=== PATIENT | female | born 1995 | race Caucasian/White ===

== ENCOUNTER 2020-11-26 01:08 | Emergency (ER) | payer OTHER ==
[~2020-11-26] VITALS: Ht 165.1 cm; Wt 50.0 kg
[2020-11-26 01:18] VITALS: BP 125/79; TEMP 98.2
[2020-11-26 02:25] LABS: COLLECTION METHOD CLEAN CATCH
[2020-11-26 02:27] LABS: BASO % 0.6 % (0.0-2.0); EOS # 0.2 (0.0-0.7); EOS % 2.2 % (0-4.0); GRAN # 3.1 (1.4-6.5); GRAN % 45.6 % (42.2-75.2); HEMATOCRIT 41.5 % (37.0-47.0); HEMOGLOBIN 13.5 g/dl (12.5-16.0); LYMPH # 2.9 (1.2-3.4); LYMPH % 43.8 % (20.0-51.0); MEAN CELL VOLUME 91 fl (80.0-100.0); MEAN CORPUSCULAR HEMOGLOBIN 30 pg (27.0-31.0); MEAN CORPUSCULAR HGB CONC 33 g/dl (33.0-37.0); MEAN PLATELET VOLUME 10.2 fl (7.4-10.4); MONO # 0.5 (0.1-0.6); MONO % 7.7 % (1.7-9.3); PLATELET COUNT 240 K/mm3 (130-400); RED BLOOD COUNT 4.56 M/mm3 (4.10-5.30); REDCELL DISTRIBUTION WIDTH-CV 12.4 % (11.5-14.5)
[2020-11-26 02:30] LABS: PH 6 (5-8); SQUAMOUS EPITHELIAL 0-2 /hpf; URINE APPEARANCE Clear; URINE BACTERIA None Seen /hpf; URINE BILIRUBIN Negative (NEGATIVE); URINE BLOOD 1+ (NEGATIVE); URINE COLOR Yellow; URINE GLUCOSE Negative (NEGATIVE); URINE KETONE Negative (NEGATIVE); URINE LEUKOCYTE ESTERASE Negative (NEGATIVE); URINE NITRATE Negative (NEGATIVE); URINE PROTEIN(semi-quant) Negative (NEGATIVE); URINE RBC 0-2 /hpf
[2020-11-26 02:37] LABS: ALBUMIN 4.5 gm/dL (3.5-5.0); BILIRUBIN,TOTAL 0.2 mg/dL (0.0-1.0); CALCIUM 9.6 mg/dL (8.4-10.2); CREATININE, serum 0.75 (0.52-1.25); TOTAL PROTEIN 7.8 gm/dL (6.4-8.2)
[2020-11-26] MEDS ORDERED: BENTYL 20MG20 MG/TAB PO (04:00)
[2020-11-26] MEDS ORDERED: CIPRO 500MG TA500 MG PO (04:00)
[2020-11-26] MEDS ORDERED: FLAGYL500 MG PO (04:00)
[2020-11-26 04:23] VITALS: PULSE 66
== END 2020-11-26 04:26 | disposition home or self-care (01) ==
LOC: COL.ER 01:08
PROVIDERS: Emergency Medicine
DX: R10.32 Left lower quadrant pain (principal); Z32.02 Encounter for pregnancy test, result negative; Z88.5 Allergy status to narcotic agent
CPT/HCPCS: J1885; Q9967